=== PATIENT | female | born 1955 | race Caucasian/White ===

== ENCOUNTER 2020-01-01 11:25 | Outpatient (CLI) | payer OTHER | END 2020-01-02 15:20 | disposition home or self-care (01) | LOC: INFRM 11:25 | PROVIDERS: ATTEND Family Medicine | DX: U07.1 COVID-19 (principal); I10 Essential (primary) hypertension; Z23 Encounter for immunization ==

== ENCOUNTER → 2020-04-02 | Outpatient (CLI) | payer OTHER | LOC: GMAJ 15:11 | PROVIDERS: ATTEND Family Medicine | DX: E55.9 Vitamin D deficiency, unspecified (principal); I10 Essential (primary) hypertension; I50.9 Heart failure, unspecified ==